=== PATIENT | male | born 1945 | race Caucasian/White ===

== ENCOUNTER 2023-10-29 12:47 | Emergency (ER) | payer OTHER, SELFPAY ==
[2023-10-29 13:02] VITALS: BP 136/81; PULSE 78; RESP 18; TEMP 37.1; O2SAT 97; BMI 31.5
--- NOTE | 2023-10-29 13:30 | ED_ITS ---
HPI - General Adult General Chief complaint: Extremity Pain/Injury, Lower Stated complaint: Infection on L foot/arm Time Seen by Provider: 10/29/23 12:48 History of Present Illness HPI narrative: This 77-year-old male comes in with redness, warmth, and mild swelling of his left lower extremity involving the lower portion of his calf into his foot. These symptoms have been present for few days. He had similar symptoms about a month ago in his left hand was treated with an antibiotic and resolved after fiber 6 days. The patient does not have any history of diabetes or peripheral neuropathy. 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 He does not report any fevers. He states that he is otherwise in good health. Related Data Home Medications ?Medication ?Instructions ?Recorded ?Confirmed metoprolol succinate PO DAILY 10/29/23 pravastatin PO DAILY 10/29/23 Previous Rx's ?Medication ?Instructions ?Recorded cephalexin 500 mg capsule 500 mg PO TID 10 days #30 caps 10/29/23 Allergies Allergy/AdvReac Type Severity Reaction Status Date / Time No Known Drug Allergies Allergy Verified 10/29/23 13:01 Review of Systems Status of ROS: Reports: 10 or more systems reviewed and unremarkable except as noted in History and below Narrative: Constitutional: No fevers, no weight gain or loss. Eyes: No discharge. No vision changes. HENT: No congestion, no sore throat, no ear pain. Cardiovascular: No chest pain, no palpitations. Respiratory: No shortness of breath, no wheezes, no cough. Gastrointestinal: No abdominal pain, no vomiting, no diarrhea. Genitourinary: No dysuria, no hematuria. Musculoskeletal: Normal range of motion. Skin: No rashes, no pruritis. Neurological: No dizziness, weakness, sensory change, speech change. Endo/Heme/Allergies: No bruising or bleeding. No polydipsia. Pysch: no suicidality, no anxiety, no insomnia. All other systems reviewed and are negative. Exam Narrative: Exam Narrative: Constitutional: Well-developed, well-nourished, no acute distress. HEENT: Normocephalic, atraumatic. Neck: Normal range of motion. Nontender. Supple. Heart: Regular. No murmurs. Normal rate. Intact distal pulses. Lungs: Clear to auscultation. No chest discomfort. No wheezes, rhonchi, or rales. Abdomen: Normal bowel sounds. Nontender. No rebound tenderness. Genitalia: Deferred. Back: No midline tenderness. Normal range of motion. Extremities: Normal range of motion. No injury. Skin: Intact. No rash. Warm. No pallor. Increased warmth with erythema and tenderness involving the left lower extremity extending from his foot half way up to his knee. This is typical of cellulitis. Neurologic: No altered sensation. No weakness. Alert and oriented. Psychiatric: No suicidality. No anxiety or depression. No insomnia. Nursing notes and vitals signs are reviewed. Const: Vital Signs, click to edit/add: Vital Signs - 24 hr 10/29/23 13:02 Temperature 98.7 F Pulse Rate [Pulse Oximeter] 78 Respiratory Rate 18 Blood Pressure [Ri ght Upper Arm] 136/81 Pulse Oximetry 97 Oxygen Delivery Me thod Room Air Course Vital Signs Vital signs: Initial Vital Signs Temperature 98.7 F 10/29/23 13:02 Temperature Source Temporal Artery Scan 10/29/23 13:02 Pulse Rate 78 10/29/23 13:02 Respiratory Rate 18 10/29/23 13:02 Blood Pressure 136/81 10/29/23 13:02 Blood Pressure Mean 99 10/29/23 13:02 Blood Pressure Position Sitting 10/29/23 13:02 Pulse Oximetry 97 10/29/23 13:02 Oxygen Delivery Method Room Air 10/29/23 13:02 Vital Signs Temperature 98.7 F 10/29/23 13:02 Pulse Rate 78 10/29/23 13:02 Respiratory Rate 18 10/29/23 13:02 Blood Pressure 136/81 10/29/23 13:02 Pulse Oximetry 97 10/29/23 13:02 Oxygen Delivery Method Room Air 10/29/23 13:02 Temperature 98.7 F 10/29/23 13:02 Pulse Rate 78 10/29/23 13:02 Respiratory Rate 18 10/29/23 13:02 Blood Pressure 136/81 10/29/23 13:02 Pulse Oximetry 97 10/29/23 13:02 Oxygen Delivery Method Room Air 10/29/23 13:02 Medical Decision Making MDM Narrative Medical decision making narrative: This patient has findings typical of a cellulitis of his left lower extremity. He arrives with normal vital signs. He is not showing any signs of systemic disease otherwise. He did receive a prescription for cephalexin and was advised to follow-up with his primary physician or return if not improving or worsening. Discharge Plan Discharge Clinical Impression: Cellulitis Patient Disposition: Home w/ Parent or Adult Condition: Stable Additional Instructions: Take medication as prescribed. Follow up with primary physician for ongoing management or return if worsening. Prescriptions: New cephalexin 500 mg capsule 500 mg PO TID 10 Days Qty: 30 0RF No Action pravastatin PO DAILY metoprolol succinate PO DAILY Stand Alone Forms: [employer] ([employer]) Info Instructions
[2023-10-29 13:57] VITALS: RESP 16
== END 2023-10-29 13:56 | disposition home or self-care (01) ==
LOC: ED 13:48
PROVIDERS: Emergency Provider Emergency Medicine Emergency Medical Services
DX: L03.116 Cellulitis of left lower limb (principal)
CPT/HCPCS: 99283; 99284